=== PATIENT | female | born 1965 | race Caucasian/White ===

== ENCOUNTER 2016-08-04 11:32 | Emergency (ER) | payer BC ==
--- NOTE | 2016-08-15 01:09 | ER ---
ADMIT: 08/04/2016 RM/LOC: [facility] MR#: [id number] ACC#: [id number] [address] [id number] NURA PATTON [address] [place] [id number] Emergency Room Report SEX: F AGE: 50 : 1965 DATE: 08/04/2016 The patient is a 50-year-old who presents to emergency room with rectal bleeding. She says she has some blood clots in her stool for about 2 days now. She had had a colonoscopy in her 20s and had polyps. She is concerned that she may have some malignancy. She has abdominal pain that is located suprapubically. PAST MEDICAL HISTORY: Includes hypertension, breast cancer. She has had an appendectomy, cholecystectomy, hysterectomy, and lumpectomy. Her immunizations, see T-sheet. FAMILY HISTORY: She does have an extensive family history of colon cancer. PHYSICAL EXAMINATION: She is mildly anxious. Vitals within normal limits. She is afebrile. She has heme-positive stool. Low abdominal discomfort and tenderness. Rest physical examination is within normal limits. CT scan shows colitis, uncomplicated. CBC: WBC 11.4, hemoglobin 14.2. Chemistry, 2.8 potassium. CRP 0.56. Hemoccult-positive as mentioned. Normal urinary tract infection. IMPRESSION: Hypokalemia, abdominal pain, colitis uncomplicated. DISCHARGE INSTRUCTIONS: Given IV fluids, given at 50 mL an hour. She had an increase in her potassium to 40 mEq daily for 1 week and get re-evaluated. She will need a colonoscopy to make sure she does not have any polyps. Return as needed. ROHIT Kim / Martin Castro MD / edwar JOB #: [id number] CC: Martin Castro MD, Attending Physician Jb Hill DO, Family Physician
== END 2016-08-04 15:15 | disposition home or self-care (01) ==
LOC: ER 11:32
DX: K52.9 Noninfective gastroenteritis and colitis, unspecified (principal); E87.6 Hypokalemia; K92.1 Melena; I10 Essential (primary) hypertension; Z90.49 Acquired absence of other specified parts of digestive tract; Z90.710 Acquired absence of both cervix and uterus